=== PATIENT | female | born 1970 | race Caucasian/White ===

== ENCOUNTER 2021-08-30 06:55 | Emergency (ER) | payer OTHER, SELFPAY ==
[2021-08-30 07:00] VITALS: BP 144/80; PULSE 110; O2SAT 100
[2021-08-30 07:04] VITALS: BP 151/94; PULSE 94; RESP 18; TEMP 36.9; O2SAT 98; BMI 26.6
--- NOTE | 2021-08-30 07:08 | ED.PSYCH ---
HPI - Psych General Chief Complaint: Anxiety <Barbie Stacy MD - Last Filed: 08/30/21 07:10> Stated Complaint: anxiety <Barbie Stacy MD - Last Filed: 08/30/21 07:10> Time Seen by Provider: 08/30/21 07:04 <Barbie Stacy MD - Last Filed: 08/30/21 07:10> Source: patient and EMS <Barbie Stacy MD - Last Filed: 08/30/21 07:10> Mode of arrival: EMS <Barbie Stacy MD - Last Filed: 08/30/21 07:10> Limitations: no limitations <Barbie Stacy MD - Last Filed: 08/30/21 07:10> History of Present Illness HPI Narrative: Patient comes to the emergency room complaining of severe anxiety and depression. Patient states that she takes 2 medications, compliant with her meds. Patient denies suicidal or homicidal ideation. Patient states that she is very scared to live by herself. Patient states that she would benefit from respite, requesting a N consult <Barbie Stacy MD - Last Filed: 08/30/21 07:10> Related Data Allergies/Adverse Reactions: Allergies Allergy/AdvReac Type Severity Reaction Status Date / Time cephalexin [From KEFLEX] Allergy Unknown DYSTONIA Unverified 10/23/19 15:15 <Barbie Stacy MD - Last Filed: 08/30/21 07:10> Review of Systems Review of Systems: Constitutional : No Weight loss, No Fever, No Chills, No Night Sweats, No Fatigue, No Malaise ENT/Mouth : No Hearing loss, No Ear Pain, No Nasal Congestion, No Sinus Pain, No Hoarseness, No sore throat, No Rhinorrhea, No Swallowing Difficulty Eyes: No Eye Pain, No Swelling, No Redness, No Foreign Body, No Discharge, No Vision Changes Cardiovascular : No Chest Pain, No SOB, No Dyspnea on Exertion, No Orthopnea, No Edema, No Palpitations Respiratory : No Cough, No Sputum, No Wheezing, No Smoke Exposure, No Dyspnea Gastrointestinal : No Nausea, No Vomiting, No Diarrhea, No Constipation, No abdominal Pain, No Hematochezia, No Melena Genitourinary : no irregular bleeding, No Dysuria, No Urinary Frequency, No Hematuria, No Urinary Incontinence, No Urgency, No Flank Pain, No Urinary Flow Changes, No Hesitancy Musculoskeletal : No joint pain, No Myalgias, No Joint Swelling Skin : No Skin Lesions, No rash Neuro : No Weakness, No Numbness, No Paresthesias, No Loss of Consciousness, No Dizziness, No Headache Psych : Complaining of anxiety, depression, afraid of living by herself, denies SI or HI Heme/Lymph: No Bruising, No Bleeding,No Lymphadenopathy Endocrine : No Polyuria, No Polydipsia, No Temperature Intolerance <Barbie Stacy MD - Last Filed: 08/30/21 07:10> [facility] Past Medical History Medical History: Medical History Anxiety Depression Hypertension <Barbie Stacy MD - Last Filed: 08/30/21 07:10> Social History Social History: Social History Advance Directives: No Advance Directives Information Provided: No <Barbie Stacy MD - Last Filed: 08/30/21 07:10> Physical Exam Vital Signs: Vital Signs: Last Vital Signs Temp 98.2 F 08/30/21 10:32 Pulse 90 08/30/21 10:32 Resp 14 08/30/21 10:32 BP 151/90 H 08/30/21 10:32 Pulse Ox 98 08/30/21 10:32 O2 Del Method 08/30/21 10:32 BMI result Body Mass Index 26.6 <Barbie Stacy MD - Last Filed: 08/30/21 07:10> Vital Signs: Last Vital Signs Temp 98.2 F 08/30/21 10:32 Pulse 90 08/30/21 10:32 Resp 14 08/30/21 10:32 BP 151/90 H 08/30/21 10:32 Pulse Ox 98 08/30/21 10:32 O2 Del Method 08/30/21 10:32 BMI result Body Mass Index 26.6 <Domo Cerrato MD - Last Filed: 08/30/21 14:35> Const: Other: Appearance: Alert. Oriented X3. No acute distress. Eyes: Pupils equal, round and reactive to light. ENT: Pharynx normal. Neck: Normal inspection. Neck supple. No lymph nodes noted. No crepitus CVS: Normal heart rate and rhythm. Pulses normal. Normal S1 and S2 Respiratory: No respiratory distress. Breath sounds normal. No Wheezing. No rales Abdomen: Soft and nontender. No rigidity. No distention. Skin: Skin warm and dry. Normal skin color. Normal skin turgor. Extremities: No lower extremity edema. No Lacerations. No Rash Neuro: Oriented X 3. No motor deficit. No sensory deficit. Moving all extremities. No slurred speech. CN 2 through 12 grossly intact Psych: calm, cooperative, normal affect <Barbie Stacy MD - Last Filed: 08/30/21 07:10> Course Course Course Narrative: [facility] consult pending. Patient states that she would benefit from respite. Physician of starvation started at 07:10 <Barbie Stacy MD - Last Filed: 08/30/21 07:10> Reevaluation(s) Reevaluation #1: Seen and cleared by crisis. Patient is going to [facility] will be discharged <Domo Cerrato MD - Last Filed: 08/30/21 14:35> Time: 14:34 <Domo Cerrato MD - Last Filed: 08/30/21 14:35> MDM - Psych Lab Data Labs: Lab Results 08/30/21 08/30/21 Range/Units 07:33 08:21 Urine Color YELLOW Urine Appearance CLOUDY Urine pH 6.0 (5.0-8.0) Ur Specific [place] >= 1.030 H (1.005-1.025) Urine Protein NEG (NEG-TRACE) MG/DL Urine Glucose (UA) NEG (NEG) MG/DL Urine Ketones NEG (NEG) MG/DL Urine Blood TRACE (NEG) Urine Nitrite NEG (NEG) Ur Leukocyte Esterase TRACE H (NEG) Urine RBC 0-2 (0) /HPF Urine WBC 0-2 (0-4) /HPF Ur Squamous Epith Cells 2+ /LPF Urine Bacteria 3+ /LPF Urine Mucus 1+ /LPF Urine Opiates Screen Not Detected (Not Detect) Urine Fentanyl Screen Not Detected (Not Detect) Ur Barbiturates Screen Not Detected (Not Detect) Ur Phencyclidine Scrn Not Detected (Not Detect) Ur Amphetamines Screen Not Detected (Not Detect) U Benzodiazepines Scrn Not Detected (Not Detect) Urine Cocaine Screen Not Detected (Not Detect) U Marijuana (THC) Screen Not Detected (Not Detect) <Barbie Stacy MD - Last Filed: 08/30/21 07:10> Lab Results 08/30/21 08/30/21 Range/Units 07:33 08:21 Urine Color YELLOW Urine Appearance CLOUDY Urine pH 6.0 (5.0-8.0) Ur Specific [place] >= 1.030 H (1.005-1.025) Urine Protein NEG (NEG-TRACE) MG/DL Urine Glucose (UA) NEG (NEG) MG/DL Urine Ketones NEG (NEG) MG/DL Urine Blood TRACE (NEG) Urine Nitrite NEG (NEG) Ur Leukocyte Esterase TRACE H (NEG) Urine RBC 0-2 (0) /HPF Urine WBC 0-2 (0-4) /HPF Ur Squamous Epith Cells 2+ /LPF Urine Bacteria 3+ /LPF Urine Mucus 1+ /LPF Urine Opiates Screen Not Detected (Not Detect) Urine Fentanyl Screen Not Detected (Not Detect) Ur Barbiturates Screen Not Detected (Not Detect) Ur Phencyclidine Scrn Not Detected (Not Detect) Ur Amphetamines Screen Not Detected (Not Detect) U Benzodiazepines Scrn Not Detected (Not Detect) Urine Cocaine Screen Not Detected (Not Detect) U Marijuana (THC) Screen Not Detected (Not Detect) <Domo Cerrato MD - Last Filed: 08/30/21 14:35> Discharge Plan Discharge Clinical Impression: Anxiety, Depression <Barbie Stacy MD - Last Filed: 08/30/21 07:10> Patient Disposition: Xfer to Respite Facility <Barbie Stacy MD - Last Filed: 08/30/21 07:10> Transfer Details: [facility] <Barbie Stacy MD - Last Filed: 08/30/21 07:10> [facility] <Domo Cerrato MD - Last Filed: 08/30/21 14:35> Instructions: Anxiety (ED) <Barbie Stacy MD - Last Filed: 08/30/21 07:10> Referrals: Virgil Adam MD [Primary Care Provider] - 1 week <Barbie Stacy MD - Last Filed: 08/30/21 07:10>
[2021-08-30 07:25] VITALS: BP 163/97; PULSE 90; RESP 16; TEMP 36.7; O2SAT 100
[2021-08-30 07:41] LABS: Appearance Urine CLOUDY; Color Urine YELLOW; Glucose Urine UA NEG (NEG); Leukocyte Esterase Urine TRACE (NEG); Nitrite Urine NEG (NEG); Specific Gravity - Urine >= 1.030 (1.005-1.025); UACC Culture Trigger NO; Urine Blood TRACE (NEG); Urine Ketones NEG (NEG); Urine Protein NEG (NEG-TRACE)
[2021-08-30 07:49] LABS: Bacteria Urine 3+ /LPF; Squamous Epithelial Cell Urine 2+ /LPF
[2021-08-30 07:51] LABS: Mucus Urine 1+ /LPF; RBC Urine 0-2 /HPF (0); WBC Urine 0-2 /HPF (0-4)
[2021-08-30 08:45] LABS: Amphetamine Screen Urine Not Detected (Not Detect); Barbiturates, Urine Not Detected (Not Detect); Benzodiazepines Screen Urine Not Detected (Not Detect); Cannabinoid Screen Urine Not Detected (Not Detect); Cocaine Screen Urine Not Detected (Not Detect); Fentanyl, urine Not Detected (Not Detect); Opiate Screen Urine Not Detected (Not Detect); Phencyclidine Screen Urine Not Detected (Not Detect)
--- NOTE | 2021-08-30 10:02 | PC.NURSE ---
SMART SHEET SUBMITTED
[2021-08-30 10:32] VITALS: BP 151/90; PULSE 90; RESP 14; TEMP 36.8; O2SAT 98
--- NOTE | 2021-08-30 12:15 | PC.NURSE ---
PT WAITING FOR [facility] TO DISCUSS SERVICES, NO SI/HI
== END 2021-08-30 15:53 ==
PROVIDERS: Emergency Provider Emergency Medicine; PCP Internal Medicine
DX: F41.9 Anxiety disorder, unspecified (principal); F32.A Depression, unspecified; I10 Essential (primary) hypertension; Z79.899 Other long term (current) drug therapy
CPT/HCPCS: 80307; 81001; 99283

== ENCOUNTER 2021-09-14 02:43 | Emergency (ER) | payer OTHER, SELFPAY ==
--- NOTE | 2021-09-14 02:46 | ED.ANXIETY ---
HPI - Anxiety General Chief Complaint: Anxiety Stated Complaint: ANXIETY Time Seen by Provider: 09/14/21 02:45 Source: patient and old records reviewed Mode of arrival: EMS Limitations: no limitations History of Present Illness MD complaint: anxiety Onset (ago): year(s) Symptoms: sense of impending doom Severity: severe Quality: intermittent Place: home History of similar episodes: Yes Provoking factors: none known Relieving factors: nothing Exacerbating factors: other (lives alone) Associated symptoms: denies other symptoms Related Data Allergies Allergy/AdvReac Type Severity Reaction Status Date / Time cephalexin [From KEFLEX] Allergy Unknown DYSTONIA Unverified 10/23/19 15:15 Review of Systems Review of Systems: Constitutional : No Fever, No Chills ENT/Mouth : No Ear Pain, No Nasal Congestion, No sore throat Eyes: No Eye Pain, No Swelling, No Redness Cardiovascular : No Chest Pain, No SOB Respiratory : No Cough, No Sputum, No Dyspnea Gastrointestinal : No Nausea, No Vomiting, No Diarrhea, No Hematochezia, No Melena Genitourinary : No Dysuria, No Urinary Frequency, No Hematuria Musculoskeletal : No Myalgias Skin : No Skin Lesions, No rash Neuro : No Weakness, No Numbness, No Paresthesias, No Dizziness, No Headache Psych : positive Anxiety, positive Depression, no SI/HI Heme/Lymph: No Lymphadenopathy Endocrine : No Polyuria, No Polydipsia All other systems reviewed and are negative [facility] Past Medical History Attestation statement: The following information was validated with the patient. Medical History Anxiety Depression Hypertension Social History Social History (Updated 09/14/21 @ 02:51 by Shaina Yao DO) Alcohol intake: never Patient Tobacco Use Status: Never used Tobacco Use of substances other than those prescribed or required for medical reasons: No Advance Directives: No Advance Directives Information Provided: Yes Physical Exam Vital Signs: Vital Signs: Last Vital Signs Temp 98.1 F 09/14/21 02:49 Pulse 80 09/14/21 06:00 Resp 18 09/14/21 06:00 BP 174/99 H 09/14/21 06:00 Pulse Ox 97 09/14/21 06:00 O2 Del Method 09/14/21 06:00 BMI result Body Mass Index 25.0 Appearance: Alert. Oriented X3. Anxious No acute distress. Eyes: Pupils equal, round and reactive to light. ENT: Pharynx normal. Neck: Normal inspection. Neck supple. CVS: Normal heart rate and rhythm. Pulses normal. Respiratory: No respiratory distress. Breath sounds normal. Abdomen: Soft and non-tender. Skin: Skin warm and dry. Normal skin color. Normal skin turgor. Extremities: No lower extremity edema. No calf ttp Neuro: Oriented X 3. No motor deficit. No sensory deficit. CN2-12 intact Course Course Course Narrative: Physician observation started at 252am. Patient placed in physician observation because the patient needed more time for [facility] to assess her request of respite placement given her severe anxiety. At the time observation was started the patient's vitals were stable, patient is alert and oriented but slightly anxious, Neuro: nonfocal, CV RRR, Lungs clear Physician observation ended at 645am. Patient is voluntary now wants to leave as she feels better and has her own ride to respite. Disposition is for home. MDM - Anxiety MDM Narrative Medical decision making narrative: 51 yo female hx of depression and anxiety here with c/o anxiety and she feels it is so bad she needs to talk to [facility] about going to respire - similar presentation recently. No SI/HI. Will give PO ativan and refer to [facility] Lab Data Labs: Lab Results 09/14/21 09/14/21 Range/Units 02:56 03:34 Urine Opiates Screen Not Detected (Not Detect) Urine Fentanyl Screen Not Detected (Not Detect) Ur Barbiturates Screen Not Detected (Not Detect) Ur Phencyclidine Scrn Not Detected (Not Detect) Ur Amphetamines Screen Not Detected (Not Detect) U Benzodiazepines Scrn Not Detected (Not Detect) Urine Cocaine Screen Not Detected (Not Detect) U Marijuana (THC) Screen Not Detected (Not Detect) COVID-19 ([facility]) Negative (Negative) COVID-19 Clin Com See Note Discharge Plan Discharge Clinical Impression: Anxiety Patient Disposition: Home, Self-Care Instructions: Anxiety (ED) Additional Instructions: return to ED for any worsening symptoms or concerns please follow up with your therapist and call [facility] to go to respite
[2021-09-14 02:49] VITALS: BP 144/88; BP 184/115; PULSE 81; PULSE 87; RESP 16; TEMP 36.7; O2SAT 98; BMI 25.0
[2021-09-14] MEDS: LORazepam 1 MG TABLET PO (02:57)
[2021-09-14 03:21] LABS: COVID-19 Test Negative (Negative)
[2021-09-14 03:35] VITALS: BP 170/100; PULSE 81; RESP 18; O2SAT 98
[2021-09-14 03:56] LABS: Amphetamine Screen Urine Not Detected (Not Detect); Barbiturates, Urine Not Detected (Not Detect); Benzodiazepines Screen Urine Not Detected (Not Detect); Cannabinoid Screen Urine Not Detected (Not Detect); Cocaine Screen Urine Not Detected (Not Detect); Fentanyl, urine Not Detected (Not Detect); Opiate Screen Urine Not Detected (Not Detect); Phencyclidine Screen Urine Not Detected (Not Detect)
[2021-09-14 06:00] VITALS: BP 174/99; PULSE 80; RESP 18; O2SAT 97
--- NOTE | 2021-09-14 06:48 | PC.NURSE ---
Pt requested to be discharged. Pt stated that her friend was coming to pick her up and bring her to respite. Provider made aware.
== END 2021-09-14 07:13 | disposition home or self-care (01) ==
PROVIDERS: Emergency Provider Emergency Medicine
DX: F41.9 Anxiety disorder, unspecified (principal); Z20.822 Contact with and (suspected) exposure to COVID-19; F32.A Depression, unspecified; I10 Essential (primary) hypertension
CPT/HCPCS: 80307; 87635; 99283

== ENCOUNTER 2021-09-27 02:28 | Emergency (ER) | payer OTHER, SELFPAY ==
[2021-09-27 02:40] VITALS: BP 144/80; BP 144/89; PULSE 112; PULSE 124; RESP 17; TEMP 36.7; O2SAT 96; BMI 26.6
--- NOTE | 2021-09-27 02:42 | ED_ITS ---
HPI - Anxiety General Chief Complaint: Anxiety Stated Complaint: anxiety Time Seen by Provider: 09/27/21 02:41 Source: patient Mode of arrival: EMS Limitations: no limitations History of Present Illness HPI narrative: patient feels stressed about being alone, she cant sleep and is constantly pacing. Patient has an appointment at 3:30pm today. Patient did not feel that she has the coping mechanisms to do this alone. Patient denies alcohol or substance abuse. Patient denies suicidal or homicidal ideation. Patient denies visual or auditory hallucinations. MD complaint: anxiety Onset (ago): hour(s) Severity: mild Quality: constant Provoking factors: emotional stress Relieving factors: nothing Exacerbating factors: nothing Associated symptoms: denies other symptoms Related Data Home Medications Medication Instructions Recorded Confirmed clonidine HCl 0.1 mg tablet 1 tab PO BEDTIME 09/27/21 09/27/21 metoprolol succinate 100 mg 1 tab PO DAILY 09/27/21 09/27/21 tablet,extended release 24 hr trazodone 100 mg tablet 1 tab PO BEDTIME 09/27/21 09/27/21 Allergies Allergy/AdvReac Type Severity Reaction Status Date / Time cephalexin [From KEFLEX] Allergy Unknown DYSTONIA Verified 09/27/21 02:37 sertraline [From Zoloft] Allergy Hives Verified 09/27/21 02:38 Review of Systems Constitutional: Constitutional: Reports no additional constitutional complaints Eyes: Eyes: Reports no additional eye complaints ENT: Denies dizziness Cardiovascular: Cardiovascular: Reports no additional cardiovascular complaints Respiratory: Respiratory: Reports as per HPI Gastrointestinal: Gastrointestinal: Reports no additional gastrointestinal complaints Genitourinary: Genitourinary: Reports no additional female genitourinary complaints Musculoskeletal: Musculoskeletal: Reports no additional musculoskeletal complaints Integumentary/Breasts: Skin/Breast: Denies rash Neurologic: Reports system reviewed and no additional complaints, except as documented, Denies dizziness and Denies Sensory deficit (Neuro) Psychiatric: Psychiatric: Denies anxiety PMFSH Past Medical History Medical History Anxiety Depression Hypertension Social History Social History Alcohol intake: never Patient Tobacco Use Status: Never used Tobacco Advance Directives: No Advance Directives Information Provided: No Physical Exam Vital Signs: Vital Signs: Last Vital Signs Temp 97.9 F 08/23/22 06:00 Pulse 96 09/27/21 06:00 Resp 16 09/27/21 06:00 BP 142/93 H 09/27/21 06:00 Pulse Ox 96 09/27/21 06:00 O2 Del Method 09/27/21 06:00 BMI result Body Mass Index 26.6 Const: Other: anxious General: healthy appearing Nutritional Appearance: average body habitus Orientation/consciousness: oriented to person and patient oriented x3 Limitations: no limitations HEENT: Head: Yes normal to inspection Ears: external ears normal General nose exam: Normal external nose present Mouth: Normal oral and palatal mucosa present and oropharynx normal Throat: Yes posterior oropharynx normal Eyes: General: appearance normal, both eyes and all related structures Neck: Other: supple Neck: Yes normal visual inspection Chest: Chest palpation & inspection: normal inspection of the chest Resp: Auscultation: clear to auscultation bilaterally Cardio: Jugular venous distension: no JVD Rate: regular rate Rhythm: regular rhythm Heart sounds: S1 normal heart sound present and S2 normal heart sound present GI: Inspection: Yes normal to inspection Palpation (GI): Soft to palpation, nontender and No hepatosplenomegaly present Auscultation: normal bowel sounds : General: Yes no CVA tenderness Back/Spine/Pelvis: Back: no CVA tenderness Skin: General skin exam: no rashes or lesions noted Neuro: General: oriented to person and patient oriented x3 Cranial nerves: Yes CN's II-XII intact bilaterally Motor exam (neuro): 5/5 motor strength present throughout Sensory Exam: No Sensory deficit (Neuro) Extrem: General: Yes normal to inspection Psych: Other: anxious Course Reevaluation(s) Reevaluation #1: awaiting crisis evaluation Time: 06:28 MDM - Anxiety Lab Data Result diagrams: 09/27/21 03:09 09/27/21 03:09 Labs: Lab Results 09/27/21 09/27/21 09/27/21 Range/Units 03:09 03:09 03:39 WBC 8.1 (4.8-10.8) X10*3/uL RBC 4.28 (4.20-5.50) X10*6/uL Hgb 10.7 L (12.0-16.0) g/dl Hct 33.5 L (37.0-47.0) % MCV 78.3 L (80.0-98.0) fL MCH 25.0 L (27.0-33.0) pg MCHC 31.9 (31.0-35.0) g/dl RDW 14.6 (11.0-16.0) % Plt Count 310 (160-400) X10*3/uL MPV 10.2 (9.4-12.3) fL Immature Gran % (Auto) 0.4 (0.0-0.4) % Neut % (Auto) 82.7 H (45-73) % Lymph % (Auto) 12.3 L (20-40) % [place] % (Auto) 3.7 (2-11) % Eos % (Auto) 0.0 (0-4) % Baso % (Auto) 0.9 (0-2) % Lymph # (Auto) 1.0 L (1.2-4.9) X10*3/uL [place] # (Auto) 0.3 (0.1-1.2) X10*3/uL Eos # (Auto) 0.0 (0.0-0.4) X10*3/uL Baso # (Auto) 0.1 (0.0-0.2) X10*3/uL Abs Immat Gran (auto) 0.03 (0.00-0.03) X10*3/uL Absolute Neuts (auto) 6.7 (2.0-8.3) x10*3/uL Absolute Nucleated RBC 0.000 (0.0-0.012) X10*3/uL Nucleated RBC % (auto) 0.0 (0.0-0.2) /100WBC Sodium 137 (135-145) mmol/L Potassium 4.2 (3.3-5.1) mmol/L Chloride 102 (96-108) mmol/L Carbon Dioxide 24 (22-29) mmol/L Anion Gap 15 (12-20) BUN 10 (9-16) mg/dL Creatinine 0.78 (0.5-1.4) mg/dL Estim Creat Clear Calc 85.2 Estimated GFR > 60 Random Glucose 168 H (60-115) mg/dL Calcium 9.1 (8.4-10.2) mg/dL Total Bilirubin 0.5 (0.0-1.0) mg/dL AST 23 (5-31) U/L ALT 25 (0-31) U/L Alkaline Phosphatase 83 (39-117) U/L Total Protein 7.2 (6.5-8.0) g/dL Albumin 4.3 (3.5-5.0) g/dL Urine Opiates Screen Not Detected (Not Detect) Urine Fentanyl Screen POSITIVE H (Not Detect) Ur Barbiturates Screen Not Detected (Not Detect) Ur Phencyclidine Scrn Not Detected (Not Detect) Ur Amphetamines Screen Not Detected (Not Detect) U Benzodiazepines Scrn Not Detected (Not Detect) Urine Cocaine Screen Not Detected (Not Detect) U Marijuana (THC) Screen Not Detected (Not Detect) Ethyl Alcohol < 10 mg/dL Discharge Plan Discharge Clinical Impression: Anxiety Patient Disposition: Still a Patient Prescriptions: No Action clonidine HCl 0.1 mg tablet 1 tab PO BEDTIME metoprolol succinate 100 mg tablet extended release 24 hr 1 tab PO DAILY trazodone 100 mg tablet 1 tab PO BEDTIME
[2021-09-27 03:14] LABS: Basophils Absolute Auto 0.1 X10*3/uL (0.0-0.2); Basophils Percent Auto 0.9 % (0-2); Hematocrit 33.5 % (37.0-47.0); Hemoglobin 10.7 g/dl (12.0-16.0); Imm Gran Abs Auto 0.03 X10*3/uL (0.00-0.03); Imm Gran Pct Auto 0.4 % (0.0-0.4); Lymphocytes Percent Auto 12.3 % (20-40); MANUAL DIFF FLAG NO; Mean Corpuscular HGB Conc 31.9 g/dl (31.0-35.0); Mean Corpuscular Volume 78.3 fL (80.0-98.0); Mean Platelet Volume 10.2 fL (9.4-12.3); Monocytes Absolute Auto 0.3 X10*3/uL (0.1-1.2); Monocytes Percent Auto 3.7 % (2-11); Neutrophils Absolute Auto 6.7 x10*3/uL (2.0-8.3); Neutrophils Percent Auto 82.7 % (45-73); Platelet Count 310 X10*3/uL (160-400); Red Blood Count 4.28 X10*6/uL (4.20-5.50); Red Cell Distribution Width 14.6 % (11.0-16.0); White Blood Count 8.1 X10*3/uL (4.8-10.8)
[2021-09-27 03:35] LABS: Alanine Aminotransferase 25 U/L (0-31); Albumin Level 4.3 g/dL (3.5-5.0); Alkaline Phosphatase 83 U/L (39-117); Anion Gap 15 (12-20); Aspartate Amino Transferase 23 U/L (5-31); Bilirubin Total 0.5 mg/dL (0.0-1.0); Blood Urea Nitrogen 10 mg/dL (9-16); Calcium 9.1 mg/dL (8.4-10.2); Carbon Dioxide 24 mmol/L (22-29); Chloride 102 mmol/L (96-108); Creatinine Clr Calc Pharmacy 85.2; Estimated Glomerular Filt Rate > 60; Ethanol < 10 mg/dL; Glucose Random 168 mg/dL (60-115); Potassium 4.2 mmol/L (3.3-5.1); Sodium 137 mmol/L (135-145); Total Protein 7.2 g/dL (6.5-8.0)
[2021-09-27 04:01] LABS: Amphetamine Screen Urine Not Detected (Not Detect); Barbiturates, Urine Not Detected (Not Detect); Benzodiazepines Screen Urine Not Detected (Not Detect); Cannabinoid Screen Urine Not Detected (Not Detect); Cocaine Screen Urine Not Detected (Not Detect); Fentanyl, urine POSITIVE (Not Detect); Opiate Screen Urine Not Detected (Not Detect); Phencyclidine Screen Urine Not Detected (Not Detect)
[2021-09-27] MEDS: clonazePAM 0.5 MG TABLET PO (05:17)
[2021-09-27 06:00] VITALS: BP 142/93; PULSE 96; RESP 16; TEMP 36.6; O2SAT 96
--- NOTE | 2021-09-27 06:01 | PC.NURSE ---
[facility] online referral completed by this RN.
[2021-09-27 08:04] VITALS: BP 136/79; PULSE 95; RESP 16; O2SAT 96
--- NOTE | 2021-09-27 10:00 | PC.NURSE ---
bhn at bedside
== END 2021-09-27 11:19 | disposition home or self-care (01) ==
PROVIDERS: Emergency Provider Emergency Medicine
DX: F41.1 Generalized anxiety disorder (principal); F43.0 Acute stress reaction; Z79.899 Other long term (current) drug therapy
CPT/HCPCS: 80053; 80307; 82077; 85025; 99284

== ENCOUNTER 2024-03-29 01:08 | Emergency (ER) | payer OTHER, SELFPAY ==
[2024-03-29 01:23] VITALS: BP 175/107; PULSE 90; RESP 18; TEMP 37; O2SAT 100; BMI 27.4
--- NOTE | 2024-03-29 01:33 | ED_ITS ---
HPI - General Adult General Chief complaint: Psychiatric Symptoms Stated complaint: Anxiety wants to be seen, hx anxiety & depression, Time Seen by Provider: 03/29/24 01:23 Source: patient, RN notes reviewed and old records reviewed Mode of arrival: EMS Limitations: no limitations History of Present Illness ED Provider: Ange SMITH narrative: 53-year-old female past medical history significant for anxiety and depression presents for evaluation of anxiety. She reports to me that she found out a few hours ago that her ex has The patient reports that she is not dealing well with this in his very anxious about it She was not have any suicidal thoughts She was seeking to speak with ?the crisis team. ? The patient reports that she has been compliant with the medications Related Data Home Medications ?Medication ?Instructions ?Recorded ?Confirmed clonidine HCl 0.1 mg tablet 1 tab PO BEDTIME 09/27/21 09/27/21 metoprolol succinate 100 mg 1 tab PO DAILY 09/27/21 09/27/21 tablet,extended release 24 hr trazodone 100 mg tablet 1 tab PO BEDTIME 09/27/21 09/27/21 Allergies Allergy/AdvReac Type Severity Reaction Status Date / Time cephalexin [From KEFLEX] Allergy Unknown DYSTONIA Verified 03/29/24 01:29 sertraline [From Zoloft] Allergy Hives Verified 03/29/24 01:29 Review of Systems Constitutional: Constitutional: Denies body ache(s), Denies chills, Denies f ever(s), Denies frequent falls and Denies headache(s) Eyes: Eyes: Denies blurry vision ENT: Denies vertigo, Denies dizziness and Denies headache(s) Cardiovascular: Cardiovascular: Denies chest pain and Denies dyspnea Respiratory: Respiratory: Denies cough and Denies dyspnea Gastrointestinal: Gastrointestinal: Denies abdominal pain Musculoskeletal: Musculoskeletal: Denies back pain Integumentary/Breasts: Skin/Breast: Denies rash Neurologic: Denies vertigo, Denies dizziness, Denies frequent falls and Denies headache(s) Psychiatric: Psychiatric: Reports anxiety, Reports depression, Denies auditory hallucinations, Denies visual hallucinations, Denies homicidal ideation and Denies suicidal ideation PMF Past Medical History Medical History Anxiety Depression Hypertension Social History Social History Alcohol intake: never Patient Tobacco Use Status: Never used Tobacco Do you have a plan to hurt others: No Plan Physical Exam ED Vital Signs: Vital Signs - 24 hr 03/29/24 01:23 Temperature 98.6 F Pulse Rate 90 Respiratory Rate 18 Blood Pressure 175/107 H Pulse Oximetry 100 Oxygen Delivery Method Room Air BMI result Body Mass Index 27.4 Const General: healthy appearing, comfortable, no acute distress, alert and awake Nutritional Appearance: well nourished Orientation/consciousness: patient oriented x3 HENMT Head: Yes normocephalic and Yes atraumatic Eyes Eyelids: Yes eyelids normal Conjunctivae: conjunctivae normal Sclerae: sclerae normal Corneas: corneas normal Pupils: Equal, round and reactive pupils present EOM: EOMs intact bilaterally Neck Neck: Yes full ROM Resp Effort & Inspection: normal respiratory effort, able to speak in complete sentences and not labored Skin General skin exam: elasticity normal Neuro General: patient oriented x3 Cranial nerves: Yes Equal, round and reactive pupils present and Yes Bilaterally intact EOM present Cognition (Neuro): normal cognition Extrem Other: Moving all extremities well without any obvious deformities Medical Decision Making Medical Decision Making MDM Narrative: 53-year-old female presents for evaluation of anxiety. She reports that she was going through a grieving episode as she found out that her ex yesterday. She denies any suicidal ideation. Plan for medical clearance and care team evaluation. She appears well and has no somatic complaints Differential Diagnosis Differential Diagnoses: The differential diagnosis associated with the presentation includes Grief Depression Anxiety Panic disorder Mood disorder Medication noncompliance Discharge Plan Discharge Clinical Impression: Grief Patient Disposition: Still a Patient Prescriptions: No Action clonidine HCl 0.1 mg tablet 1 tab PO BEDTIME metoprolol succinate 100 mg tablet extended release 24 hr 1 tab PO DAILY trazodone 100 mg tablet 1 tab PO BEDTIME Print Language: Hungarian
[2024-03-29] MEDS: hydrOXYzine HCL 50 MG TABLET PO (01:42)
[2024-03-29] MEDS: LORazepam 1 MG TABLET 2 MG PO (01:45)
[2024-03-29 01:56] LABS: MANUAL DIFF FLAG NO
[2024-03-29 02:04] LABS: Basophils Absolute Auto 0.1 X10*3/uL (0.0-0.2); Basophils Percent Auto 0.9 % (0-2); Eosinophils Absolute Auto 0.2 X10*3/uL (0.0-0.4); Eosinophils Percent Auto 2.4 % (0-4); Hematocrit 35.2 % (37.0-47.0); Hemoglobin 11.3 g/dl (12.0-16.0); Imm Gran Abs Auto 0.03 X10*3/uL (0.00-0.03); Imm Gran Pct Auto 0.3 % (0.0-0.4); Lymphocytes Absolute Auto 3.5 X10*3/uL (1.2-4.9); Lymphocytes Percent Auto 35.1 % (20-40); Mean Corpuscular HGB Conc 32.1 g/dl (31.0-35.0); Mean Corpuscular Hemoglobin 26.3 pg (27.0-33.0); Mean Corpuscular Volume 82.1 fL (80.0-98.0); Mean Platelet Volume 9.6 fL (9.4-12.3); Monocytes Absolute Auto 0.6 X10*3/uL (0.1-1.2); Monocytes Percent Auto 5.8 % (2-11); Neutrophils Absolute Auto 5.5 x10*3/uL (2.0-8.3); Neutrophils Percent Auto 55.5 % (45-73); Platelet Count 399 X10*3/uL (160-400); Red Blood Count 4.29 X10*6/uL (4.20-5.50); Red Cell Distribution Width 13.2 % (11.0-16.0)
[2024-03-29 02:17] LABS: Appearance Urine Cloudy; Color Urine Yellow; Glucose Urine UA Negative (Negative); Leukocyte Esterase Urine Small (1+) (Negative); Nitrite Urine Positive (Negative); UMIC TRIGGER UACC YES; Urine Blood Small (1+) (Negative); Urine Ketones Negative (Negative); Urine Protein Trace mg/dL (Neg-Trace)
[2024-03-29 02:26] LABS: Alanine Aminotransferase 43 U/L (0-31); Albumin Level 3.9 g/dL (3.5-5.0); Anion Gap 13 (12-20); Aspartate Amino Transferase 39 U/L (5-31); Bilirubin Total 0.3 mg/dL (0.0-1.0); Blood Urea Nitrogen 12 mg/dL (9-16); Calcium 9.3 mg/dL (8.4-10.2); Carbon Dioxide 27 mmol/L (22-29); Chloride 105 mmol/L (96-108); Creatinine Clr Calc Pharmacy 89.8; Estimated Glomerular Filt Rate > 60; Ethanol < 10 mg/dL; Glucose Random 137 mg/dL (60-115); Potassium 4.2 mmol/L (3.3-5.1); Sodium 141 mmol/L (135-145); Total Protein 8.4 g/dL (6.5-8.0)
[2024-03-29 02:27] LABS: Bacteria Urine 4+ (None Seen); Calcium Oxalate Crystals Urine Present; UACC Culture Trigger YES; WBC Urine 21-50 /HPF (0-5)
[2024-03-29 02:29] LABS: Amphetamine Screen Urine Not Detected (Not Detect); Barbiturates, Urine Not Detected (Not Detect); Benzodiazepines Screen Urine Not Detected (Not Detect); Buprenorphine Scr Not Detected (Not Detect); Cannabinoid Screen Urine Not Detected (Not Detect); Cocaine Screen Urine Not Detected (Not Detect); Fentanyl, urine Not Detected (Not Detect); Methadone Screen, Urine Not Detected (Not Detect); Opiate Screen Urine Not Detected (Not Detect); Oxycodone Screen Urine Not Detected (Not Detect); Phencyclidine Screen Urine Not Detected (Not Detect)
[2024-03-29 02:35] LABS: Alkaline Phosphatase 120 U/L (39-117)
[2024-03-29 02:49] LABS: Acetaminophen LAB < 3 mcg/mL (<30); Salicylate < 5.0 mg/dL (15-30)
--- OUTSIDE RECORDS SUMMARY | 2024-03-29 04:11 | XMS_ITS | Clinical Summary ---
Author Organization [address] [facility] Address [address] [place] [phone] Phone Care Team Providers Care Wellness Nurse Name Role Phone Tammy Jade DO Primary Care Provider [phone] Allergies Active Allergy Reactions Criticality Noted Date Comments Prochlorperazine 04/10/2013 hives Sertraline Hives 04/10/2013 Medications amantadine (SYMMETREL) 100 mg capsule Take 1 Capsule by mouth daily. Active haloperidoL (HALDOL) 5 mg tablet Take 1 Tablet by mouth daily. Active hydrOXYzine HCL (ATARAX) 25 mg tablet Take 1 Tablet by mouth 3 times daily as needed for Anxiety. 4 Active simethicone (MYLICON) 80 mg chewable tablet Take 1 Tablet by mouth every 6 hours as needed for Flatulence. 4 Active thiamine 100 mg tablet TAKE 1 TABLET BY MOUTH DAILY. 90 tablet 4 Active amLODIPine (NORVASC) 5 mg tablet TAKE 1 TABLET BY MOUTH DAILY. 90 tablet 5 Active pantoprazole (PROTONIX) 40 mg EC tablet TAKE 1 TABLET BY MOUTH DAILY. 90 tablet 5 Active pantoprazole (PROTONIX) 40 mg EC tablet TAKE 1 TABLET BY MOUTH DAILY. 4 03/04/19 25 Discontinued Active Problems Problem Noted Date Diagnosed Date Dizziness 01/26/2023 Primary hypertension 01/26/2023 Hiatal hernia 08/23/2020 Overview (01/07/2024): Seen at upper endoscopy 2015 and 2019. Last Assessment & Plan: Had laproscopic repair in 2020 Liver cyst 08/23/2020 Overview (01/07/2024): 1.3 cm, seen on CT abdo 08/21/2020 Pulmonary nodules 08/23/2020 Overview (01/07/2024): Incidental finding CT abdo and Pelvis 08/21/2020 [facility] Schizoaffective disorder, bipolar type 8 Anxiety 12/08/2016 Gastric ulcer 03/12/2015 Overview (01/07/2024): EGD plus biopsies 03/10/2015 at the [facility]. Biopsies negative for H. Pylori, negative for malignancy. Anemia 02/09/2012 Depression 02/09/2012 Overview (01/07/2024): 07/02/13 [facility] note hx past suicide attempts and self harming behaviors Encounters Date Type Department Care Team Description 03/28/2024 Telephone Internal [facility] [place] [place] [phone] Tammy Jade DO Hospital Follow-up 03/27/2024 3:28 PM EST - 03/27/2024 5:32 PM EST Emergency [facility] Emergency [address] [place] [id number] Discharge Disposition: Home or Self Care 01/16/2024 Telephone Internal Medicine - [place] [facility] [place] [place] [phone] Tammy Jade DO Faxed Order (aJi Dick ([id number])) 01/15/2024 Telephone Internal Medicine - [place] [facility] [place] [phone] Tammy Jade DO Establish Care 01/02/2024 Telephone [facility] [place] [phone] Tammy Jade DO [facility] from Last 3 Months Immunizations Name Administration Dates Next Due Influenza Quadravalent, MDCK , 0.5ml, with preservative (Flucelvax) 6mo and older 11/21/2016 Influenza, Unspecified 11/05/2021 Tdap Tetanus diptheria acell ular pertussis (Boostrix; Adacel) 7yo and older 04/26/2017 Surgical History Surgery Date Site/Laterality Comments TUBAL LIGATION PROCEDURE: HISTORICAL TUBAL LIGATION UPPER GASTROINTESTINAL ENDOSCOPY 6 PROCEDURE: AK UPPER GI ENDOSCOPY PERFORMED; COMMENT: [facility]; erosive gastritis, gastric ulcers, biopsies negative for H. pylori. ESOPHAGOGASTRODUODENOSCOPY 06/17/19 16 PROCEDURE: AK ESOPHAGOGASTRODUODENOSCOPY TRANSORAL DIAGNOSTIC; COMMENT: Small hiatal hernia, otherwise normal COLONOSCOPY 06/17/19 PROCEDURE: HISTORICAL COLONOSCOPY; COMMENT: Incomplete procedure due to poor preparation. Repeat next available COLONOSCOPY 07/01/19 PROCEDURE: HISTORICAL COLONOSCOPY; COMMENT: Meenu colon and TI OTHER SURGICAL HISTORY PROCEDURE: HISTORY OTHER; COMMENT: laser for glaucoma COLONOSCOPY 11/27/19 PROCEDURE: HISTORICAL COLONOSCOPY; COMMENT: normal, repeat 10 years ESOPHAGOGASTRODUODENOSCOPY 11/27/19 PROCEDURE: [place] ESOPHAGOGASTRODUODENOSCOPY TRANSORAL DIAGNOSTIC; COMMENT: Dr. Conner- large hiatal hernia otherwise unremarkable. Medical History Medical History Date Comments History of giardiasis 02/08/2012 DX:History of giardiasis History of glaucoma 04/26/2017 DX:History o f glaucoma Anemia 02/09/2012 DX:Anemia Anxiety 12/08/2016 DX:Anxiety Depression 02/09/2012 DX:Depression; C OMMENT: 07/02/13 [facility] note hx past suicide attempts and self harming behaviors Gastric ulcer 03/12/2015 DX:Gastric ulcer ; COMMENT: EGD plus biopsies 03/10/2015 at the [facility]. Biopsies negative for H. Pylori, negative for malignancy. Hiatal hernia 08/23/2020 DX:Hiatal hernia ; COMMENT: Seen at upper endoscopy 2015 and 2019. Pulmonary nodules 08/23/2020 DX:Pulmonary n odules; COMMENT: Incidental finding CT abdo and Pelvis 08/21/2020 [facility] Liver cyst 08/23/2020 DX:Liver cyst; C OMMENT: 1.3 cm, seen on CT abdo 08/21/2020 Essential (primary) hypertension DX:Essential (primary) hypertension Primary hypertension 01/26/2023 Family History Medical History Relation Name Comments Diabetes Father HTN, hyperchole steremia Heart attack Mother hypercholestere helio Colon cancer Paternal Grandmother Blindness Neg Hx Breast cancer Neg Hx Cataracts Neg Hx Glaucoma Neg Hx Macular degeneration Neg Hx Strabismus Neg Hx Relation Name Status Comments Brother Alive Father Alive diabetes Mother Alive heart disease Paternal Grandmother Social History Tobacco Use Types Packs/Day Years Used Date Smoking Tobacco: Never Smokeless Tobacco: Never Alcohol Use Standard Drinks/Week Comments Not Currently 0 (1 standard drink = 0.6 oz pur e alcohol) Comments Unknown Sex and Gender Information Value Date Recorded Sex Assigned at Not on file Legal Sex Female 7:23 PM EST Gender Identity Not on file Sexual Orientation Not on file Obstetrics History Last Filed Vital Signs Vital Sign Reading Time Taken Comments Blood Pressure 146/112 03/27/2024 3:53 PM EST Pulse 107 03/27/2024 3:53 PM EST Temperature 37 ??C (98.6 ??F) 03/27/2024 3:53 PM EST Respiratory Rate 18 03/27/2024 3:53 PM EST Oxygen Saturation 100% 03/27/2024 3:53 PM EST Inhaled Oxygen Concentration - - Weight 74.8 kg (165 lb) 03/27/2024 3:53 PM EST Height 165.1 cm (5' 5 ) 03/27/2024 3:53 PM EST Body Mass Index 27.46 03/27/2024 3:53 PM EST Plan of Treatment Upcoming Encounters Date Type Department Care Team (Late st Contact Info) Description 03/31/2024 9:45 AM EST Office [address] Medicine [address] [place] [phone] [facility] Re[facility] [place] 08/13/2024 3:00 PM EDT [facility] [place] [phone] Tammy Jade DO [address] [facility] [place] [address] Health Maintenance Due Date Last Done Comments Hepatitis B Vaccines (1 of 3 - 19+ 3-dose series) 1989 Pneumococcal Vaccine: 50+ Years (1 of 2 - PCV) 1989 Pneumococcal Vaccine: Pediatrics (0 to 5 Years) and At-Risk Patients (6 to 64 Years) (1 of 2 - PCV) 1989 Zoster Vaccines (1 of 2) 2020 HIV Screening 01/14/2022 Hepatitis C Screening 01/14/2022 Social Influencers of Health Screening 01/14/2022 Cholesterol Screening (Lipid Panel) 04/26/2022 04/26/2017 Breast Cancer Screening 05/10/2022 05/11/19 21, 09/27/2018, 09/18/2018 Hypertension/CHF/CAD Annual BMP Blood Test 03/06/2023 11/11/2020 COVID-19 Vaccine (3 2023-2 5 season) 2023 07/08/2020, 06/17/2020 Influenza Vaccine (#1) 2023 , 11/21/2016 Depression Screening 04/08/2024 04/09/2023 Cervical Cancer Screening: HPV 11/03/2025 11/03/2020 DTaP,Tdap,and Td Vaccines (2 - Td or Tdap) 04/27/2027 04/26/2017 Colorectal Cancer Screening: Colonoscopy 11/26/2029 11/27/2019 HIB Vaccines Aged Out No longer eligi ble based on patient's age to complete this topic HPV Vaccines Aged Out No longer eligi ble based on patient's age to complete this topic Hepatitis A Vaccines Aged Out No long er eligible based on patient's age to complete this topic IPV Vaccines Aged Out No longer eligi ble based on patient's age to complete this topic MMR Vaccines Aged Out No longer eligi ble based on patient's age to complete this topic Meningococcal ACWY Vaccine Aged Out N o longer eligible based on patient's age to complete this topic Meningococcal B Vacine Aged Out No lo nger eligible based on patient's age to complete this topic RSV Immunization Patients Under 20 months Aged Out No longer eligible b ased on patient's age to complete this topic Varicella Vaccines Aged Out No longer eligible based on patient's age to complete this topic Procedures Procedure Name Priority Date/Time Associated Diagnosis Comments DEPRESSION SCREENING Routine 04/09/2023 ANNUAL BMP BLOOD TEST Routine 11/11/2020 HPV Routine 11/03/2020 SCR MAMMO BI INCL CAD Routine 05/10/2020 2:53 PM EDT Encounter for screening mammogram for malignant neoplasm of breast COLONOSCOPY Routine 11/27/2019 LIPID PANEL Routine 04/26/2017 from Last 3 Months or Most Recently Relevant to Health Maintenance Results * Depression Screening (04/09/2023) Pathologist [facility] Depression Screening Abstracted [facility] Provider HEALTH MAINTENANCE Final Result * Annual BMP Blood Test (11/11/2020) Pathologist [facility] Annual BMP Blood Test Abstracted [facility] Provider HEALTH MAINTENANCE Final Result * Cervical Cancer Screening: HPV (11/03/2020) Pathologist [facility] Cervical Cancer Screening: HPV Negative, Abstracted [facility] Provider HEALTH MAINTENANCE Final Result * SCR MAMMO BI INCL CAD (05/10/2020 2:53 PM EDT) Anatomical Region Laterality Modality Radiographic Leticia ging 04/22/2020 2:35 PM EDT Narrative 05/11/2020 9:57 AM EDT This is a summary report. The complete report is available in the patient's medical record. If you cannot access the medical record, please contact the sending organization for a detailed fax or copy. Full field digital screening mammography, reviewed with CAD and compared to previous mammograms of 10/27/2015 and 09/18/2018. The breast tissue is heterogeneously dense, limiting sensitivity. No suspicious mass, architectural distortion or suspicious calcifications are identified. IMPRESSION: : Dense breast tissue, limiting the sensitivity of mammography. No mammographic evidence of malignancy. BIRADS 1-Negative; N. 5 year breast cancer risk assessment 1.0 % Lifetime breast cancer risk assessment 10.0 % Breast cancer risk category Low (<15%) Procedure Note Yara Tello MD - 01/24/2022 This is a summary report. The complete report is available in thepatient's medical record. If you cannot access the medical record, pleasecontact the sending organization for a detailed fax or copy. Full field digital screening mammography, reviewed with CAD and comparedto previous mammograms of 10/27/2015 and 09/18/2018. The breast tissue isheterogeneously dense, limiting sensitivity. No suspicious mass,architectural distortion or suspicious calcifications are identified. IMPRESSION: : Dense breast tissue, limiting the sensitivity of mammography. Nomammographic evidence of malignancy. BIRADS 1-Negative; N. 5 year breast cancer risk assessment 1.0 % Lifetime breast cancer risk assessment 10.0 % Breast cancer risk category Low (<15%) Virgil Adam MD IMG XR PROCEDURES Final Result * Colonoscopy (11/27/2019) Colonoscopy No Interpretation , Abstracted Anatomical Region Laterality Modality Other Historical Provider HEALTH MAINTENANCE Final Result * (ABNORMAL) Lipid panel (04/26/2017) LDL/HDL Ratio 4 0 - 4 Triglycerides 76 0 - 150 mg/dL Cholesterol 197 0 - 200 mg/dL HDL 56 >=40 mg/dL LDL Cholesterol 126(A) 0 - 100 mg/dL Blood Venous blood specimen / Unknown Historical Provider LAB BLOOD ORDERABLES Gosia l Result from Last 3 Months or Most Recently Relevant to Health Maintenance Insurance [facility] [employer] Care Teams Wellness Nurse Relationship Specialty Start Date End Date Tammy Jade DO [address] [place] [address] PCP - General 09/25/22
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
[2024-03-29 06:00] VITALS: RESP 16
--- NOTE | 2024-03-29 07:13 | PC.NURSE ---
Assumed care of patient at 0645, patient appears to be in no apparent distress this am, sleeping, respirations even and unlabored. Continue plan of care for CARE team pili
--- NOTE | 2024-03-29 07:14 | PC.NURSE ---
Patient has UTI, MD Evy lew texted at [phone]
[2024-03-29 10:30] VITALS: BP 108/64; PULSE 84; RESP 16; TEMP 36.7; O2SAT 97
== END 2024-03-29 10:32 | disposition home or self-care (01) ==
PROVIDERS: Physician Assistant; Emergency Provider Internal Medicine; PCP Internal Medicine
DX: F43.20 Adjustment disorder, unspecified (principal); F41.9 Anxiety disorder, unspecified; F32.A Depression, unspecified; Z79.899 Other long term (current) drug therapy
CPT/HCPCS: 36415; 80053; 80143; 80179; 80307; 81001; 85025; 87086; 87088; 87186; 99284; 99285; S9485